=== PATIENT | male | born 1965 | race Caucasian/White ===

== ENCOUNTER → 2016-12-04 | Outpatient (CLI) | payer BC ==
[~2016-12-04] MED LIST: EMPA25TA PO; GLIM4TAB2 PO; HYDR12.53 PO; IOHEXOL 300 MG/ML 100ML VIAL. IV ONE; METF-620 PO
--- NOTE | 2016-12-04 11:45 | KCIC ---
CT CHEST W/CONTRAST dated 12/04/2016 8:30 AM Indication: Abnormal chest x-ray, multiple lung nodules Comparison: November 22, 2016 chest radiograph Technique: CT imaging was performed of the[chest], multiplanar reconstruction images submitted. One or more of the following individualized dose reduction techniques were utilized for this examination: 1. Automated exposure control 2. Adjustment of the mA and/or kV according to patient size 3. Use of iterative reconstruction technique. Contrast: 95 cc Omnipaque 300 Findings: There are calcified left upper lobe nodules, also calcified nodes of the mediastinum and left hilum. There is a small 5-6 mm focus of subpleural density of the right lower lobe axial images 107-108 although possibly component of atelectasis. There is mild coronary calcification. Thoracic aortic caliber is within normal limits without intraluminal flap. There is no abnormal pericardial or pleural fluid, pneumothorax, infiltrate. There is probable hepatic steatosis. IMPRESSION: 1. There are calcified left upper lobe nodules, also calcified nodes of the left hilum and mediastinum compatible with old granulomatous disease. There is a questionable small 5-6 mm right lower lobe nodule versus mild atelectasis. If there are increased risk factors for neoplasm, optional 12 month follow-up of this nodule could be performed. If low risk factors, no additional follow-up needed as per revised Fleischner guidelines. 2. There is minimal coronary calcification. Electronically signed by: Derian Saldana MD (12/04/2016 11:42 AM) [facility]
== END | disposition home or self-care (01) ==
LOC: KCIC CT 08:09
PROVIDERS: ATTEND Family Medicine
DX: D71 Functional disorders of polymorphonuclear neutrophils (principal); R91.8 Other nonspecific abnormal finding of lung field
CPT/HCPCS: 71260; Q9967

== ENCOUNTER → 2017-01-28 | Outpatient (CLI) | payer BC ==
[~2017-01-28] MED LIST changes: -IOHEXOL 300 MG/ML 100ML VIAL. IV ONE
--- NOTE | 2017-01-28 15:00 | CARD ---
APPROVED REPORT INDICATION Chest Pain PROCEDURE The patient underwent an Exercise Stress Test using the Sang Protocol. Blood pressure, heart rate, a nd EKG were monitored. An Echocardiogram was performed by trace evidence technician in four stages in quad fashion. At peak stress four se lected images were obtained and placed side by side with resting images for comparison. STRESS ECHO FINDINGS The resting Echocardiogram showed normal left ventricular contractility with an estimated Ejection Fr action of about 60 %. Normal augmentation of myocardial wall segments using a 16 segment model. Test Type: Exercise Stress Nurse/Tech: Lily Hollingsworth R.N. Test Indications: Chest pain. Cardiac History and Allergies: SEE EMR Medications: SEE EMR Medical History: SEE EMR Resting ECG: SR Resting Heart Rate: 98 bpm Resting Blood Pressure: 133/68mmHg Pretest Chest Pain: None Nurse/Tech Notes [id number], lungs CTA but diminished throughout, denied chest pain or SOA. Consent: The procedure was explained to the patient in lay terms. Informed consent was witnessed. Santiago eout was entered into [employer]. History and Stress Test performed by Lily Hollingsworth R.N. Stress Symptoms SOA. POST EXERCISE Reason for Termination: Reached target heart rate Target HR: 143 Max HR: 163 bpm 97% of Maximum Predicted HR: 168 bpm Exercise duration: 6:32 min:sec, 2 Stage Exercise capacity: 7.0METs Max Blood Pressure: 168/72mmHg Blood Pressure response to exercise: Normal blood pressure response during stress. Heart Rate response to exercise: Normal Chest Pain: No. Arrhythmia: Yes. Intermittent PVC's ST Change: No. INTERPRETATION Stress EKG Conclusion: Baseline EKG showed sinus rhythm. No ischemic changes at peak stress. No arr hythmias. RESTING ECG Rhythm: Sinus STRESS ECG Rhythm: Sinus Tachycardia Stress EKG shows no significant changes. Preliminary Notification Critical Value: No <Conclusion> Treadmill exercise stress echocardiogram did not show any evidence of ischemia or infarct. Normal left ventricle systolic function with ejection fraction estimated at 60%. Patient had good activity tolerance. Low risk for cardiac events.
== END | disposition home or self-care (01) ==
LOC: ECHO 12:23
PROVIDERS: ATTEND Internal Medicine Cardiovascular Disease
DX: R07.9 Chest pain, unspecified (principal); R00.0 Tachycardia, unspecified
CPT/HCPCS: 93017; 93225; 93350